=== PATIENT | female | born 1960 | race Two or more races ===

== ENCOUNTER 2022-08-22 10:00 | Outpatient (RCR) | payer MEDICAID, SELFPAY | END 2022-08-24 12:54 | disposition home or self-care (01) | LOC: HO.PT 10:00 | PROVIDERS: PCP Family Medicine; Visit Provider Family Medicine | DX: M25.552 Pain in left hip (principal) | CPT/HCPCS: 97110; 97161; 97530 ==

== ENCOUNTER 2023-06-07 09:27 | Outpatient (REF) | payer MEDICAID, SELFPAY ==
--- NOTE | ~2023-06-07 | MM_ITS ---
EXAMINATION: MM SCREENING DIGITAL BREAST TOMOSYNTHESIS, BILATERAL CLINICAL INFORMATION: Screening. Asymptomatic. The lifetime risk of breast cancer based on the Tyrer-Cuzick Model is %. COMPARISON: Mammography: This study is compared with prior exams dating back to TECHNIQUE: Digital breast tomosynthesis is performed in both the craniocaudal and mediolateral oblique views along with computer-aided detection (CAD). Synthesized 2D images are generated from the tomosynthesis. FINDINGS: There are scattered areas of fibroglandular density (ACR BI-RADS breast composition Category b). In the left breast CC view only, there are 2 single view asymmetries, 1 slightly medial of the nipple line, and 1 lateral, both the anterior. No definite correlate on the left MLO view. Recommend diagnostic views. Otherwise, there are no suspicious masses, suspicious grouped calcifications, or areas of architectural distortion in either breast. MM/MM tomosynthesis screening BI IMPRESSION: There are 2 single view asymmetries left breast, CC view only, without MLO correlate. These are likely superimposition artifact. Diagnostic views recommended to include 3-D spot compression left CC views, as well as a full-field 3-D left mediolateral view. No suspicious findings in the right breast. ASSESSMENT: BI-RADS BI-RADS 0 - Incomplete: Needs additional Imaging. RECOMMENDATION: 1. Additional views of the left breast. 2. Targeted ultrasound if warranted after review of the additional views. 3. Radiology department staff will contact the patient for additional imaging. Additional Imaging required This examination should not preclude the clinical evaluation of a suspicious palpable abnormality.
== END 2023-06-07 09:28 | disposition home or self-care (01) ==
LOC: HO.MAMMO 09:27
PROVIDERS: Visit Provider Internal Medicine
DX: Z12.31 Encounter for screening mammogram for malignant neoplasm of breast (principal)
CPT/HCPCS: 77063; 77067

== ENCOUNTER → 2023-06-07 10:00 | Outpatient (BNV) | payer MEDICAID, SELFPAY | PROVIDERS: Visit Provider Radiology Diagnostic Radiology | DX: Z12.31 Encounter for screening mammogram for malignant neoplasm of breast (principal) | CPT/HCPCS: 77063; 77067 ==

== ENCOUNTER 2023-06-28 08:23 | Outpatient (REF) | payer MEDICAID, SELFPAY ==
--- NOTE | ~2023-06-28 | MM_ITS ---
EXAMINATION: MM DIAGNOSTIC DIGITAL BREAST TOMOSYNTHESIS, LEFT CLINICAL INFORMATION: Follow-up diagnostic for 2 one view asymmetry seen left breast CC view only. No definite MLO correlate. COMPARISON: Mammography: Baseline screening 06/07/2023. TECHNIQUE: Digital breast tomosynthesis is performed utilizing a 3-D full-field left mediolateral view, as well as 3-D spot compression CC views x2, along with computer-aided detection (CAD). Synthesized 2D images are generated from the tomosynthesis. FINDINGS: There are scattered areas of fibroglandular density (ACR BI-RADS breast composition Category b). The 2 one view asymmetries do not persist on diagnostic views and are most consistent with superimposition artifact of normal overlapping breast tissue. No abnormality is evident on the full-field left MLO view. There are no findings which are suspicious. MM/MM tomosynthesis diagnostic LT IMPRESSION: No persistent findings suspicious for malignancy. Recommend the patient resume routine annual screening. ASSESSMENT: BI-RADS BI-RADS 1 - Negative RECOMMENDATION: 1 year F/U Results were provided to the patient at time of visit by the technologist. This patient's information was entered into a reminder system with a target due date for their next mammogram.
== END 2023-06-28 08:24 | disposition home or self-care (01) ==
LOC: HO.MAMMO 08:23
PROVIDERS: PCP Internal Medicine; Visit Provider Internal Medicine
DX: N64.89 Other specified disorders of breast (principal)
CPT/HCPCS: 77061; 77065

== ENCOUNTER → 2023-06-28 08:30 | Outpatient (BNV) | payer MEDICAID, SELFPAY | PROVIDERS: PCP Internal Medicine; Visit Provider Radiology Diagnostic Radiology | DX: N64.89 Other specified disorders of breast (principal) | CPT/HCPCS: 77061; 77065 ==

== ENCOUNTER 2023-07-27 09:44 | Outpatient (REF) | payer MEDICAID, SELFPAY ==
[2023-07-27 12:34] LABS: Anion Gap 12 (12-20); Blood Urea Nitrogen 16 mg/dL (9-16); Calcium 9.2 mg/dL (8.4-10.2); Carbon Dioxide 25 mmol/L (22-29); Chloride 108 mmol/L (96-108); Cholesterol 158 mg/dL (<200); Estimated Glomerular Filt Rate > 60; Glucose Random 90 mg/dL (60-115); HDL Cholesterol 39 mg/dL (>40); LDL Cholesterol Calculated 100 mg/dL (<100); Potassium 4.2 mmol/L (3.3-5.1); Sodium 141 mmol/L (135-145); Triglycerides 98 mg/dL (<150)
[2023-07-27 12:39] LABS: TSH reflex Free T4 3.15 uIU/mL (0.32-4.0)
== END 2023-07-27 09:45 | disposition home or self-care (01) ==
LOC: HO.HHCL 09:44
PROVIDERS: Visit Provider Internal Medicine
DX: E03.9 Hypothyroidism, unspecified (principal)
CPT/HCPCS: 36415; 80048; 80061; 84443

== ENCOUNTER 2024-01-08 15:58 | Outpatient (REF) | payer MEDICAID, SELFPAY ==
[2024-01-11 00:03] LABS: C. trachomatis RNA TMA NOT DETECTED (NOT DETECTED); N. gonorrhoeae RNA TMA NOT DETECTED (NOT DETECTED); Trichomonas (NAAT) NOT DETECTED (NOT DETECTED)
[2024-01-11 00:23] LABS: HPV mRNA E6/E7 rflx Not Detected (Not Detected)
== END 2024-01-08 15:59 | disposition home or self-care (01) ==
LOC: HO.HHCLNP 15:58
PROVIDERS: Visit Provider Internal Medicine
DX: Z12.4 Encounter for screening for malignant neoplasm of cervix (principal); E03.9 Hypothyroidism, unspecified
CPT/HCPCS: 36415; 87491; 87591; 87624; 87661; 88142

== ENCOUNTER 2024-05-03 10:07 | Outpatient (REF) | payer MEDICAID, SELFPAY ==
[2024-05-03 21:15] LABS: TSH reflex Free T4 3.11 uIU/mL (0.32-4.0)
== END 2024-05-03 10:08 | disposition home or self-care (01) ==
LOC: HO.HMGCLDS 10:07
PROVIDERS: Visit Provider Internal Medicine
DX: E03.9 Hypothyroidism, unspecified (principal)
CPT/HCPCS: 36415; 84443